=== PATIENT | male | born 1995 | race Caucasian/White ===

== ENCOUNTER 2016-10-19 13:01 | Emergency (ER) | payer SELFPAY ==
[~2016-10-19] VITALS: Ht 185.4 cm; Wt 77.1 kg
--- NOTE | 2016-10-19 13:05 | NUR ---
AAOX3, BIBRA 86 C/O R SHOULDER PAIN POSSIBLE DISLOCATION S/P PLAYING BASKETBALL. SKIN IS WARM AND DRY. RESP IS EVEN AND UNLABORED WITH NAD NOTED. 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 DR HORN AT BS FOR EVAL.
[2016-10-19] MEDS ORDERED: PROPOFOL 20 ML IV ONE ×2 (13:08→13:21)
[2016-10-19] MEDS ORDERED: IV NS 0.9% 1,000 ML ONE (13:08)
[2016-10-19] MEDS ORDERED: IV SET PRIMARY PUMP SET 1 EA INFUS.SET MC ONE (13:08)
[2016-10-19] MEDS ORDERED: FENTANYL PF 100MCG/2ML AMPUL ONE (13:13)
[2016-10-19] MEDS ORDERED: PROPOFOL 200 MG/20 ML VIAL IV ONE ×2 (13:30)
[2016-10-19] MEDS ORDERED: FENTANYL PF 100MCG/2ML AMPUL IV ONE (13:30)
--- NOTE | 2016-10-19 13:34 | NUR ---
PT AWAKE, ALERT X3. VSS. SLING ON R ARM.
--- NOTE | 2016-10-19 13:45 | NUR ---
AT FOR RE-EVAL.
--- NOTE | 2016-10-19 14:30 | NUR ---
IV removed. Catheter intact and site benign. Pressure and 4x4 applied to site. No bleeding noted.
--- NOTE | 2016-10-19 14:46 | NUR ---
Patient discharged to home in stable condition. Written and verbal after care instructions given. Patient verbalizes understanding of instruction. Pt ambulatory with a steady gait.
[2016-10-19 14:48] VITALS: BP 141/89
== END 2016-10-19 14:49 | disposition home or self-care (01) ==
LOC: ER 13:04
DX: S43.004A Unspecified dislocation of right shoulder joint, initial encounter (principal); X58.XXXA Exposure to other specified factors, initial encounter; Y93.67 Activity, basketball; Y92.89 Other specified places as the place of occurrence of the external cause; Y99.8 Other external cause status
CPT/HCPCS: 23650; 73020; 99152; 99285; A4606; J2704; J3010; J7030; Z7610